=== PATIENT | female | born 1970 | race Caucasian/White ===

== ENCOUNTER → 2020-01-02 11:45 | Outpatient (BNVA) | payer OTHER, SELFPAY | PROVIDERS: PCP Internal Medicine; Visit Provider Surgery | DX: R19.00 Intra-abdominal and pelvic swelling, mass and lump, unspecified site (principal); R10.9 Unspecified abdominal pain | CPT/HCPCS: 99212 ==

== ENCOUNTER 2020-01-04 11:36 | Emergency (ER) | payer OTHER, SELFPAY ==
[2020-01-04 12:33] VITALS: BP 93/57; PULSE 68; RESP 18; TEMP 35.9; O2SAT 98; BMI 52.8
--- NOTE | 2020-01-04 13:04 | CT_ITS ---
EXAMINATION: CT ABDOMEN AND PELVIS WITH CONTRAST CLINICAL INFORMATION: Epigastric pain COMPARISON: None TECHNIQUE: Multidetector volumetric images were obtained from the superior aspect of the liver through the pubic symphysis following administration 85 mL of Omnipaque 350 intravenous contrast. Sagittal and coronal reformatted images were obtained on the technologist's workstation. Oral contrast: No This CT examination was performed using dose optimization techniques as appropriate, variously including the following: *Automated exposure control *Adjustment of mA and/or kV according to patient size (this includes techniques or standardized protocols for targeted exams where dose is matched to indication/reason for exam; i.e. extremities or head) *Use of iterative reconstruction technique DLP: 423 mGy-cm FINDINGS: LUNG BASES: There are some mild accentuated reticular markings subpleural bilateral bases. No airspace consolidation or effusion. LIVER, GALLBLADDER, AND BILIARY TREE: The liver is within normal size and smooth in contour and uniform in attenuation. There is no focal hepatic parenchymal lesion. There is nonspecific mild periportal edema with lucency in the portal triad. There is been prior cholecystectomy. Common duct is normal in caliber. No choledocholithiasis. PANCREAS: No peripancreatic inflammatory changes. No pancreatic ductal distention. SPLEEN: Unremarkable. ADRENAL GLANDS: Unremarkable. KIDNEYS AND URETERS: The kidneys are normal in size, shape, and attenuation. No hydronephrosis, hydroureter, or calculi seen. No perinephric stranding. BLADDER: Unremarkable. GASTROINTESTINAL TRACT: Status post prior gastric banding with normal Phi angle. No definite hiatal hernia. There is moderate stool throughout the colon. No bowel obstruction or focal inflammatory changes seen in bowel or mesentery. Normal appendix. No ascites or fluid collection. ABDOMINAL WALL: No significant hernia is appreciated. Benign oval calcification just right of umbilicus under 1 cm subcutaneous space. LYMPH NODES: No visible lymphadenopathy. VASCULAR: Unremarkable. PELVIC VISCERA: Unremarkable. OSSEOUS STRUCTURES: No acute bony abnormality. CT/CT abdomen pelvis w con IMPRESSION: 1. Prior gastric banding. No slippage or definite hiatal hernia. 2. No bowel obstruction or inflammatory changes in bowel or mesentery. Normal appendix. 3. Prior cholecystectomy. No biliary ductal dilatation. 4. Nonspecific periportal edema in liver. Homogeneous parenchymal attenuation. No hepatic adenopathy. 5. No hydronephrosis, hydroureter, or perinephric stranding.
--- NOTE | 2020-01-04 13:06 | ED.ABDPAIN ---
HPI - Abdominal Pain General Chief Complaint: Abdominal Pain Stated Complaint: abd pain Time Seen by Provider: 01/04/20 12:56 History of Present Illness HPI narrative: Patient is a 49-year-old female with a history of cholecystectomy history of weight loss and having pannus removal done by surgery here about a year and a half ago. Complaining of abdominal pain since the gastric bypass surgeon examine her abdomen. The pain is mostly epigastric in nature. In the exact location where he pressed. Patient denies any nausea no vomiting. No change in bowel movement. No coughing or congestion or upper respiratory symptoms. No pain on urination. Patient claims she had a hysterectomy. Able to tolerate fluids. No change in pain after food. Related Data Home Medications Medication Instructions Recorded Confirmed cetirizine 10 mg capsule 10 mg PO DAILY 01/02/20 diclofenac sodium 1 % topical gel 2 g TOPICAL QID 01/02/20 fluticasone propionate 50 2 spray INTRANASAL DAILY 01/02/20 mcg/actuation nasal spray,suspension furosemide 80 mg tablet 80 mg PO DAILY 01/02/20 levothyroxine 88 mcg tablet 88 mcg PO DAILY 01/02/20 ondansetron HCl 8 mg tablet 8 mg PO Q12H 01/02/20 potassium citrate 10 mEq (1,080 20 meq PO TID 01/02/20 mg) tablet,extended release sucralfate 100 mg/mL oral 5 ml PO QID 01/02/20 suspension topiramate 200 mg tablet 200 mg PO DAILY 01/02/20 tramadol 50 mg tablet 50 mg PO DAILY 01/02/20 zinc 50 mg tablet 50 mg PO DAILY 01/02/20 Previous Rx's Medication Instructions Recorded pantoprazole [Protonix] 40 mg PO DAILY 30 Days #30 tab 01/04/20 Allergies Allergy/AdvReac Type Severity Reaction Status Date / Time amitriptyline [From ELAVIL] Allergy Severe NIGHTMARES Verified 01/04/20 12:31 Penicillins [PENICILLINS] Allergy Severe SWELLING Verified 01/04/20 12:31 prednisone [PREDNISONE] Allergy Severe PALPITATION Unverified 01/02/20 12:50 S terbinafine [TERBINAFINE] Allergy Intermediate RASH Verified 01/04/20 12:31 WORSENED levofloxacin [From LEVAQUIN] Allergy Unknown UNKNOWN Verified 01/04/20 12:31 spironolactone Allergy Unknown UNKNOWN Verified 01/04/20 12:31 [SPIRONOLACTONE] [place] Allergy Unknown Anaphylaxis Uncoded 01/02/20 12:50 Elavil Allergy Unknown Anaphylaxis Uncoded 01/02/20 12:50 Terbinafine Allergy Unknown Anaphylaxis Uncoded 01/02/20 12:50 Review of Systems Review of Systems Constitutional: No Weight loss, No Fever, No Chills, No Night Sweats, No Fatigue, No Malaise ENT/Mouth: No Hearing loss, No Ear Pain, No Nasal Congestion, No Sinus Pain, No Hoarseness, No sore throat, No Rhinorrhea, No Swallowing Difficulty Eyes: No Eye Pain, No Swelling, No Redness, No Foreign Body, No Discharge, No Vision Changes Cardiovascular: No Chest Pain, No SOB, No Dyspnea on Exertion, No Orthopnea, No Edema, No Palpitations Respiratory: No Cough, No Sputum, No Wheezing, No Smoke Exposure, No Dyspnea Gastrointestinal: No Nausea, No Vomiting, No Diarrhea, No Constipation, positive abdominal Pain, No Hematochezia, No Melena Genitourinary: no irregular bleeding, No Dysuria, No Urinary Frequency, No Hematuria, No Urinary Incontinence, No Urgency, No Flank Pain, No Urinary Flow Changes, No Hesitancy Musculoskeletal: No joint pain, No Myalgias, No Joint Swelling Skin: No Skin Lesions, No rash Neuro: No Weakness, No Numbness, No Paresthesias, No Loss of Consciousness, No Dizziness, No Headache Psych: No Anxiety/Panic, No Depression, No SI/HI/AH/VH, No Social Issues, Heme/Lymph: No Bruising, No Bleeding,No Lymphadenopathy Endocrine: No Polyuria, No Polydipsia, No Temperature Intolerance Physical Exam Vital Signs: Vital Signs: Last Vital Signs Temp 97.8 F 01/04/20 15:41 Pulse 69 01/04/20 15:41 Resp 17 01/04/20 15:41 BP 95/52 L 01/04/20 15:41 Pulse Ox 100 01/04/20 15:41 Body Mass Index 52.8 Appearance: Alert. Oriented X3. No acute distress. Eyes: Pupils equal, round and reactive to light. ENT: Pharynx normal. Neck: Normal inspection. Neck supple. No lymph nodes noted. No crepitus CVS: Normal heart rate and rhythm. Pulses normal. Normal S1 and S2 Respiratory: No respiratory distress. Breath sounds normal. No Wheezing. No rales Abdomen: Soft Positive mild epigastric pain. No rebound or guarding No rigidity. No distention. good BS x4 Skin: Skin warm and dry. Normal skin color. Normal skin turgor. Extremities: No lower extremity edema. Neurovascular intact to all extremities. No Lacerations. No Rash Neuro: Oriented X 3. No motor deficit. No sensory deficit. Moving all extermities. No slurred speech MDM - Abdominal Pain MDM Narrative Medical decision making narrative: Patient's electrolytes unremarkable. CT scan of the abdomen did not show any acute evidence of abscess, perforation, obstruction. There is no obstruction caused by gastric banding. Patient is liver profile is normal. Will discharge patient home. There is nonspecific marcio portal edema noted of questionable significance in light of having normal LFTs. Differential Diagnosis Differential diagnosis: Likely abdominal pain and gastritis Medical Records Attestation: I reviewed the patient's medical records. Lab Data Attestation: I reviewed the patient's lab results. Result diagrams: 01/04/20 14:28 01/04/20 14:28 Labs: Lab Results 01/04/20 01/04/20 01/04/20 Range/Units 14:28 14:28 14:28 WBC 5.5 (4.8-10.8) X10*3/uL RBC 4.61 (4.20-5.50) X10*6/uL Hgb 13.5 (12.0-16.0) g/dl Hct 41.6 (37-47) % MCV 90.2 (80-98) fL MCH 29.3 (27.0-33.0) pg MCHC 32.5 (31.0-35.0) g/dl RDW 12.0 (11.0-16.0) % Plt Count 192 (160-400) X10*3/uL MPV 11.6 (9.4-12.3) fL Immature Gran % (Auto) 0.0 (0.0-0.4) % Neut % (Auto) 40.0 L (45-73) % Lymph % (Auto) 48.5 H (20-40) % [place] % (Auto) 8.5 (2-11) % Eos % (Auto) 2.5 (0-4) % Baso % (Auto) 0.5 (0-2) % Lymph # (Auto) 2.7 (1.2-4.9) X10*3/uL [place] # (Auto) 0.5 (0.1-1.2) X10*3/uL Eos # (Auto) 0.1 (0.0-0.4) X10*3/uL Baso # (Auto) 0.0 (0.0-0.2) X10*3/uL Abs Immat Gran (auto) 0.00 (0.00-0.03) X10*3/uL Absolute Neuts (auto) 2.2 (2.0-8.3) X10*3/uL Absolute Nucleated RBC 0.000 (0.0-0.012) X10*3/uL Nucleated RBC % (auto) 0.0 (0.0-0.2) /100WBC Hold Blue Top SEE NOTE Sodium 141 (135-145) mmol/L Potassium 3.2 L (3.3-5.1) mmol/l Chloride 105 (96-108) mmol/L Carbon Dioxide 27 (22-29) mmol/L Anion Gap 12 (12-20) BUN 17 H (9-16) mg/dL Creatinine 0.79 (0.5-1.4) mg/dL Estim Creat Clear Calc 112.1 Estimated GFR > 60 Random Glucose 72 (60-115) mg/dL Calcium 8.4 (8.4-10.2) mg/dL Total Bilirubin 0.3 (0.0-1.0) mg/dL AST 15 (5-31) U/L ALT 21 (0-31) U/L Alkaline Phosphatase 60 (39-117) U/L Total Protein 6.3 L (6.5-8.0) g/dL Albumin 4.2 (3.5-5.0) g/dL Lipase 44 (8-78) U/L Discharge Plan Discharge Clinical Impression: Abdominal pain Patient Disposition: Home, Self-Care Prescriptions: New pantoprazole [Protonix] 40 mg tablet,delayed release (DR/EC) 40 mg PO DAILY 30 Days Qty: 30 RF: 0 No Action levothyroxine 88 mcg tablet 88 mcg PO DAILY RF: 0 furosemide [Lasix] 80 mg tablet 80 mg PO DAILY RF: 0 topiramate 200 mg tablet 200 mg PO DAILY RF: 0 fluticasone propionate 50 mcg/actuation spray,suspension 2 spray intranasal DAILY RF: 0 Zyrtec 10 mg capsule 10 mg PO DAILY RF: 0 potassium citrate 10 mEq (1,080 mg) tablet extended release 20 meq PO TID RF: 0 zinc 50 mg tablet 50 mg PO DAILY RF: 0 ondansetron HCl 8 mg tablet 8 mg PO Q12H RF: 0 diclofenac sodium [Voltaren] 1 % gel 2 g topical QID RF: 0 tramadol 50 mg tablet 50 mg PO DAILY RF: 0 sucralfate 100 mg/mL suspension 5 ml PO QID RF: 0 Referrals: Sofia Welch MD [Primary Care Provider] - 2 days [facility] Past Medical History Medical History Fibromyalgia Hypothyroid Pseudotumor cerebri Surgical History S/P panniculectomy Family History Family History Mother Hypertension Father Seizure Brother Hypertension Daughter No problems noted. Daughter Autoimmune disease Son No problems noted. Social History Social History Alcohol intake: never Smoking Status: Never smoker Use of substances other than those prescribed or required for medical reasons: No Advance Directives: No Advance Directives Information Provided: No
--- NOTE | 2020-01-04 13:32 | PC.NURSE ---
IV EST 20 G L AC. MEDICATED PER ORDERS
[2020-01-04] MEDS: 0.9 % Sodium Chloride 1,000 ML 999 ML IVCONT (13:36)
[2020-01-04] MEDS: ondansetron HCL 4 MG/2 ML VIAL IVPUSH (13:37)
[2020-01-04 14:46] LABS: Basophils Percent Auto 0.5 % (0-2); Eosinophils Absolute Auto 0.1 X10*3/uL (0.0-0.4); Eosinophils Percent Auto 2.5 % (0-4); Hematocrit 41.6 % (37-47); Hemoglobin 13.5 g/dl (12.0-16.0); Lymphocytes Absolute Auto 2.7 X10*3/uL (1.2-4.9); Lymphocytes Percent Auto 48.5 % (20-40); MANUAL DIFF FLAG NO; Mean Corpuscular HGB Conc 32.5 g/dl (31.0-35.0); Mean Corpuscular Hemoglobin 29.3 pg (27.0-33.0); Mean Corpuscular Volume 90.2 fL (80-98); Mean Platelet Volume 11.6 fL (9.4-12.3); Monocytes Absolute Auto 0.5 X10*3/uL (0.1-1.2); Monocytes Percent Auto 8.5 % (2-11); Neutrophils Absolute Auto 2.2 X10*3/uL (2.0-8.3); Platelet Count 192 X10*3/uL (160-400); Red Blood Count 4.61 X10*6/uL (4.20-5.50); White Blood Count 5.5 X10*3/uL (4.8-10.8)
[2020-01-04 15:07] LABS: Alanine Aminotransferase 21 U/L (0-31); Albumin Level 4.2 g/dL (3.5-5.0); Alkaline Phosphatase 60 U/L (39-117); Anion Gap 12 (12-20); Aspartate Amino Transferase 15 U/L (5-31); Bilirubin Total 0.3 mg/dL (0.0-1.0); Blood Urea Nitrogen 17 mg/dL (9-16); Calcium 8.4 mg/dL (8.4-10.2); Carbon Dioxide 27 mmol/L (22-29); Chloride 105 mmol/L (96-108); Creatinine Clr Calc Pharmacy 112.1; Estimated Glomerular Filt Rate > 60; Glucose Random 72 mg/dL (60-115); Lipase 44 U/L (8-78); Potassium 3.2 mmol/l (3.3-5.1); Sodium 141 mmol/L (135-145); Total Protein 6.3 g/dL (6.5-8.0)
[2020-01-04] MEDS: iohexoL 350 MG/ML 100 ML INFUS..BTL IV (15:31)
[2020-01-04 15:41] VITALS: BP 95/52; PULSE 69; RESP 17; TEMP 36.6; O2SAT 100
== END 2020-01-04 16:34 | disposition home or self-care (01) ==
PROVIDERS: Emergency Provider Emergency Medicine Emergency Medical Services; PCP Internal Medicine
DX: R10.9 Unspecified abdominal pain (principal); Z79.899 Other long term (current) drug therapy
CPT/HCPCS: 36415; 74177; 80053; 83690; 85025; 96361; 96374; 99284; J2405; Q9967

== ENCOUNTER 2020-08-25 14:29 | Outpatient (REF) | payer OTHER, SELFPAY ==
[2020-08-25 16:25] LABS: Iron 79 mcg/dL (30-160); Percent Iron Saturation 26 % (15-50); Total Iron Binding Capacity 307 mcg/dL (228-428); Unsaturated Iron Binding 228 ug/dL
[2020-08-25 16:45] LABS: Ferritin 57 ng/mL (10-250); Vitamin D 25-OH Total 32.6 ng/mL (>30)
[2020-08-25 17:02] LABS: Folate > 20.0 ng/mL (> or = 4.0); Vitamin B12 955 pg/mL (200-900)
[2020-08-28 16:36] LABS: Zinc 168 mcg/dL (60-130)
[2020-08-29 02:22] LABS: Vitamin A 66 mcg/dL (38-98)
[2020-08-29 12:56] LABS: Vitamin B1 63 nmol/L (8-30)
== END 2020-08-25 14:30 | disposition home or self-care (01) ==
LOC: HO.LAB 14:29
PROVIDERS: PCP Internal Medicine; Visit Provider Physician Assistant
DX: E66.3 Overweight (principal); Z68.26 Body mass index [BMI] 26.0-26.9, adult; Z71.3 Dietary counseling and surveillance; Z79.899 Other long term (current) drug therapy
CPT/HCPCS: 36415; 82306; 82607; 82728; 82746; 83540; 84425; 84590; 84630; 99212

== ENCOUNTER → 2020-09-09 08:16 | Outpatient (BNVA) | payer OTHER, SELFPAY | PROVIDERS: PCP Internal Medicine; Visit Provider Dietitian, Registered | DX: E66.3 Overweight (principal); Z68.26 Body mass index [BMI] 26.0-26.9, adult | CPT/HCPCS: 97803 ==